=== PATIENT | female | born 1935 | race Asian ===

== ENCOUNTER 2017-12-31 06:56 | Emergency (ER) | payer MEDICARE, MEDICAID ==
[~2017-12-31] VITALS: Ht 157.5 cm; Wt 60.0 kg
[~2017-12-31 06:56] MED LIST: ACET-3068 PO; ALBU8.5H4 IH; ASPI81TA52 PO; DOCU-28 PO; ESOM40CA30 PO; GABA300C PO; GLIM1TAB46 PO; LOSA1TAB36 PO; METF500T PO; MORP30TA PO; OMEP40CA37 PO; PYRI100T2 PO; PYRI50TA10 PO; SENN-161 PO
[2017-12-31] MEDS ORDERED: morphine 8mg/ml inj. syringe IV PRN (07:20)
[2017-12-31] MEDS ORDERED: normal saline 1000ML IV soln IVB ONE (07:20)
[2017-12-31] MEDS ORDERED: ondansetron/PF 4mg/2ml inj IV ONE (07:20)
[2017-12-31] MEDS ORDERED: morphine 2 MG/ML inj. syringe ONE (07:37)
[2017-12-31 08:23] LABS: BASOPHILS % (AUTO) 0.2 % (0-1); EOSINOPHILS # (AUTO) 0.1 X10'3 (0-0.9); HEMATOCRIT 37.7 % (35.0-45.0); HEMOGLOBIN 12.8 g/dl (12.0-16.0); LYMPHOCYTES # (AUTO) 1.3 X10'3 (1.1-4.8); LYMPHOCYTES % (AUTO) 9.1 % (21-51); MEAN CORPUSCULAR HEMOGLOBIN 28.6 PG (27.0-31.0); MEAN CORPUSCULAR HGB CONC 33.9 % (33.0-36.5); MEAN CORPUSCULAR VOLUME 84.3 FL (78-98); MEAN PLATELET VOLUME 7.2 FL (7.4-10.4); MONOCYTES # (AUTO) 1.1 X10'3 (0-0.9); MONOCYTES % (AUTO) 8.3 % (2-12); NEUTROPHILS # (AUTO) 11.2 X10'3 (1.8-7.7); NEUTROPHILS % (AUTO) 81.4 % (42-75); PLATELET COUNT 274 X10'3 (140-440); RED BLOOD COUNT 4.46 X10'6 (4.20-5.60); RED CELL DISTRIBUTION WIDTH 12.9 % (11.5-14.5); WHITE BLOOD COUNT 13.8 X10'3 (4.5-11.0)
[2017-12-31 08:30] LABS: CLARITY,URINE Clear (Clear); GLUCOSE, URINE >=1000 mg/dl (Neg); KETONES,URINE Negative (Neg); LEUKOCYTE ESTERASE ,URINE Negative (Neg); NITRITES, URINE Negative (Neg); OCCULT BLOOD,URINE Negative (Neg); PH,URINE 6.5 (4.8-8.0); PROTEIN,URINE Negative (Neg); UROBILINOGEN,URINE 0.2 E.U/dL (0.2-1.0)
[2017-12-31 08:33] LABS: COLOR,URINE STRAW (Yellow); UA COLLECTION TYPE STRAIGHT CATH
[2017-12-31 08:37] LABS: ALANINE AMINOTRANSFERASE 36 U/L (12-78); ALBUMIN 3.1 G/DL (3.4-5.0); ALBUMIN/GLOBULIN RATIO 0.8 (1.1-1.5); ALKALINE PHOSPHATASE 89 IU/L (46-116); ANION GAP 13 (8-16); ASPARTATE AMINO TRANSFERASE 31 U/L (10-37); BILIRUBIN,TOTAL 0.5 MG/DL (0.1-1.0); BLOOD UREA NITROGEN 13 MG/DL (7-18); BUN/CREATININE RATIO 12.4 (6.6-38.0); CALCIUM 8.6 MG/DL (8.5-10.1); CHLORIDE 96 MMOL/L (99-107); CREATININE 1.05 MG/DL (0.40-0.90); GLUCOSE 235 MG/DL (70-104); LIPASE 142 U/L (73-393); POTASSIUM 3.2 MMOL/L (3.5-5.1); SODIUM 133 MMOL/L (135-145); TOTAL CARBON DIOXIDE 24.2 MMOL/L (24-32); TOTAL PROTEIN 6.9 G/DL (6.4-8.2); eGFR 50 ML/MIN
[2017-12-31 08:40] LABS: BACTERIA,URINE FEW /HPF (Neg); RBC,URINE 0-2 /HPF (0-2); WBC,URINE 0-4 /HPF (0-4)
[2017-12-31 08:41] LABS: SQUAMOUS EPITHELIAL CELL,UR FEW /LPF (FEW); TRANSITIONAL EPI CELLS,URINE FEW /HPF
[2017-12-31] MEDS ORDERED: potassium Cl 20 mEq SR tablet PO ONE (08:50)
[2017-12-31] MEDS ORDERED: mag hydrox/Alum hydrox/simeth 30ml oral suspension PO ONE (09:10)
[2017-12-31] MEDS ORDERED: famotidine/PF 10 mg/ml inj IV ONE (09:10)
[2017-12-31] MEDS ORDERED: FAMO-128 PO (10:24)
[2017-12-31] MEDS ORDERED: SUCR1ORA2 PO (10:24)
[2017-12-31 10:41] VITALS: BP 134/89
== END 2017-12-31 10:40 | disposition home or self-care (01) ==
LOC: ER 06:57
DX: R10.13 Epigastric pain (principal); I10 Essential (primary) hypertension; J45.909 Unspecified asthma, uncomplicated; K21.9 Gastro-esophageal reflux disease without esophagitis; E11.9 Type 2 diabetes mellitus without complications; G89.29 Other chronic pain; Z88.0 Allergy status to penicillin; Z88.2 Allergy status to sulfonamides; Z88.5 Allergy status to narcotic agent; Z79.84 Long term (current) use of oral hypoglycemic drugs
CPT/HCPCS: 36415; 74176; 76700; 80053; 81001; 83690; 85025; 93005; 96361; 96374; 96375; 99285; J2270; J2405; J3490; J7030

== ENCOUNTER 2018-07-13 01:59 | Emergency (ER) | payer MEDICARE, MEDICAID ==
[~2018-07-13] VITALS: Ht 152.4 cm; Wt 60.2 kg
[~2018-07-13 01:59] MED LIST changes: +ALBU8.5H8 IH; +FAMO-128 PO; +SUCR1ORA2 PO
[2018-07-13 02:38] LABS: BASOPHILS % (AUTO) 0.4 % (0-1); EOSINOPHILS # (AUTO) 0.2 X10'3 (0-0.9); EOSINOPHILS % (AUTO) 1.8 % (0-6); HEMATOCRIT 36.1 % (35.0-45.0); HEMOGLOBIN 12.3 g/dl (12.0-16.0); LYMPHOCYTES % (AUTO) 34.2 % (21-51); MEAN CORPUSCULAR VOLUME 85.4 FL (78-98); MEAN PLATELET VOLUME 7.2 FL (7.4-10.4); MONOCYTES # (AUTO) 0.9 X10'3 (0-0.9); MONOCYTES % (AUTO) 10.1 % (2-12); NEUTROPHILS # (AUTO) 4.5 X10'3 (1.8-7.7); NEUTROPHILS % (AUTO) 53.5 % (42-75); PLATELET COUNT 332 X10'3 (140-440); RED BLOOD COUNT 4.22 X10'6 (4.20-5.60); RED CELL DISTRIBUTION WIDTH 12.1 % (11.5-14.5); WHITE BLOOD COUNT 8.6 X10'3 (4.5-11.0)
[2018-07-13] MEDS ORDERED: MORP30TA PO (02:47)
[2018-07-13] MEDS ORDERED: ACET-1017 PO (02:47)
[2018-07-13] MEDS ORDERED: PRAV10TA39 PO (02:47)
[2018-07-13] MEDS ORDERED: DIPH25CA46 PO (02:47)
[2018-07-13 02:49] LABS: INR 0.9 INR; PARTIAL THROMBOPLASTIN TIME 26 SECONDS (22-32); PROTHROMBIN TIME 9.7 SECONDS (9.0-12.0)
[2018-07-13 02:53] LABS: ALANINE AMINOTRANSFERASE 47 U/L (12-78); ALBUMIN 3.4 G/DL (3.4-5.0); ALBUMIN/GLOBULIN RATIO 0.8 (1.1-1.5); ALKALINE PHOSPHATASE 84 IU/L (46-116); ANION GAP 10 (8-16); ASPARTATE AMINO TRANSFERASE 27 U/L (10-37); BILIRUBIN,TOTAL 0.4 MG/DL (0.1-1.0); BLOOD UREA NITROGEN 12 MG/DL (7-18); BUN/CREATININE RATIO 12.1 (6.6-38.0); CALCIUM 9.3 MG/DL (8.5-10.1); CHLORIDE 98 MMOL/L (99-107); CREATININE 0.99 MG/DL (0.40-0.90); GLUCOSE 214 MG/DL (70-104); POTASSIUM 3.4 MMOL/L (3.5-5.1); SODIUM 134 MMOL/L (135-145); TOTAL CARBON DIOXIDE 25.9 MMOL/L (24-32); TOTAL PROTEIN 7.6 G/DL (6.4-8.2); eGFR 53 ML/MIN
[2018-07-13] MEDS ORDERED: FAMO-128 PO (03:35)
[2018-07-13] MEDS ORDERED: HYDROcodone/acetaminophen 5mg/325mg tablet PO ONE (03:35)
[2018-07-13] MEDS ORDERED: HYDR-569 PO (03:35)
[2018-07-13] MEDS ORDERED: loperamide 2mg capsule PO ONE (03:35)
[2018-07-13] MEDS ORDERED: LOPE-144 PO (03:35)
[2018-07-13] MEDS ORDERED: famotidine/PF 10 mg/ml inj IV ONE (03:35)
[2018-07-13 04:05] VITALS: BP 198/89
== END 2018-07-13 04:06 | disposition home or self-care (01) ==
LOC: ER 01:59
DX: K29.70 Gastritis, unspecified, without bleeding (principal); R19.7 Diarrhea, unspecified; G47.62 Sleep related leg cramps; R10.13 Epigastric pain; I10 Essential (primary) hypertension; J45.909 Unspecified asthma, uncomplicated; K21.9 Gastro-esophageal reflux disease without esophagitis; E11.9 Type 2 diabetes mellitus without complications; G89.29 Other chronic pain; Z98.890 Other specified postprocedural states; Z88.0 Allergy status to penicillin; Z88.2 Allergy status to sulfonamides; Z88.5 Allergy status to narcotic agent; Z79.899 Other long term (current) drug therapy; Z79.82 Long term (current) use of aspirin
CPT/HCPCS: 36415; 71045; 80053; 83605; 83880; 84484; 85025; 85610; 85730; 87040; 93005; 96374; 99285; J3490

== ENCOUNTER 2021-09-07 07:14 | Emergency (ER) | payer MEDICARE, MEDICAID ==
[~2021-09-07] VITALS: Ht 154.9 cm; Wt 56.5 kg
[~2021-09-07 07:14] MED LIST changes: -ACET-3068 PO; -ALBU8.5H4 IH; -ALBU8.5H8 IH; +ATOR10TA10 PO; +BUPR1FIL3 SL; -DOCU-28 PO; -ESOM40CA30 PO; -FAMO-128 PO; -GLIM1TAB46 PO; -LOSA1TAB36 PO; +MELO-102 PO; -METF500T PO; +METO1TAB25 PO; +MIRT-67 PO; -MORP30TA PO; +OMEP-50 PO; -OMEP40CA37 PO; +POTA10TA37 PO; +PRAV10TA39 PO; -PYRI100T2 PO; -PYRI50TA10 PO; -SENN-161 PO; -SUCR1ORA2 PO
[2021-09-07 07:17] VITALS: BP 130/79
== END 2021-09-07 16:55 | disposition left against medical advice (07) ==
LOC: ER 07:15
DX: R21 Rash and other nonspecific skin eruption (principal); Z53.21 Procedure and treatment not carried out due to patient leaving prior to being seen by health care provider

== ENCOUNTER 2021-09-19 10:36 | Inpatient (IN) | payer MEDICARE, MEDICAID ==
[~2021-09-19] VITALS: Ht 157.5 cm; Wt 43.2 kg
[2021-09-19] MEDS ORDERED: CefTRIAXone 2gm/D5W 50ml BAG 50 ML IV ONE (10:40)
[2021-09-19] MEDS ORDERED: normal saline 1000ML IV soln IV ONE (10:40)
[2021-09-19] MEDS ORDERED: phenazopyridine 100mg tablet PO ONE (11:25)
[2021-09-19 11:31] LABS: BASOPHILS % (AUTO) 0.1 % (0-1); EOSINOPHILS # (AUTO) 0.1 X10'3 (0-0.9); EOSINOPHILS % (AUTO) 0.8 % (0-6); HEMATOCRIT 42.4 % (35.0-45.0); HEMOGLOBIN 13.8 g/dl (12.0-16.0); LYMPHOCYTES # (AUTO) 1.3 X10'3 (1.1-4.8); LYMPHOCYTES % (AUTO) 7.3 % (21-51); MEAN CORPUSCULAR HEMOGLOBIN 28.5 PG (27.0-31.0); MEAN CORPUSCULAR HGB CONC 32.6 g/dL (33.0-36.5); MEAN CORPUSCULAR VOLUME 87.7 FL (78-98); MEAN PLATELET VOLUME 7.7 FL (7.4-10.4); MONOCYTES # (AUTO) 1.2 X10'3 (0-0.9); MONOCYTES % (AUTO) 6.6 % (2-12); NEUTROPHILS # (AUTO) 15.1 X10'3 (1.8-7.7); NEUTROPHILS % (AUTO) 85.2 % (42-75); PLATELET COUNT 340 X10'3 (140-440); RED BLOOD COUNT 4.84 X10'6 (4.20-5.60); RED CELL DISTRIBUTION WIDTH 13.3 % (11.5-14.5); WHITE BLOOD COUNT 17.7 X10'3 (4.5-11.0)
[2021-09-19 11:42] LABS: ALANINE AMINOTRANSFERASE 35 U/L (12-78); ALBUMIN 3.6 G/DL (3.4-5.0); ALBUMIN/GLOBULIN RATIO 0.8 (1.1-1.5); ALKALINE PHOSPHATASE 95 IU/L (46-116); ANION GAP 18 (8-16); ASPARTATE AMINO TRANSFERASE 22 U/L (10-37); BILIRUBIN,TOTAL 0.5 MG/DL (0.1-1.0); BLOOD UREA NITROGEN 32 MG/DL (7-18); BUN/CREATININE RATIO 22.5 (6.6-38.0); CALCIUM 9.6 MG/DL (8.5-10.1); CHLORIDE 99 MMOL/L (99-107); CREATININE 1.42 MG/DL (0.40-0.90); GLUCOSE 403 MG/DL (70-104); MAGNESIUM 2.1 MG/DL (1.5-2.4); POTASSIUM 4.1 MMOL/L (3.5-5.1); SODIUM 140 MMOL/L (135-145); TOTAL CARBON DIOXIDE 22.6 MMOL/L (24-32); eGFR 35 ML/MIN
[2021-09-19 11:46] LABS: CLARITY,URINE CLOUDY (Clear); COLOR,URINE STRAW (Yellow); UA COLLECTION TYPE STRAIGHT CATH
[2021-09-19 11:47] LABS: GLUCOSE, URINE >=1000 mg/dl (Neg); KETONES,URINE NEGATIVE (Neg); LEUKOCYTE ESTERASE ,URINE TRACE (Neg); NITRITES, URINE POSITIVE (Neg); OCCULT BLOOD,URINE NEGATIVE (Neg); PROTEIN,URINE NEGATIVE (Neg); UROBILINOGEN,URINE 0.2 E.U/dL (0.2-1.0)
[2021-09-19 11:53] LABS: BACTERIA,URINE 4+ /HPF (Neg); MUCUS STRANDS NONE SEEN /LPF (Neg); RBC,URINE 0-2 /HPF (0-2); SQUAMOUS EPITHELIAL CELL,UR NONE SEEN /LPF (FEW); WBC CLUMPS,URINE FEW /HPF (NEGATIVE); WBC,URINE 50-100 /HPF (0-4)
[2021-09-19 11:56] LABS: PLATELET ESTIMATE NORMAL; TOTAL CELLS COUNTED 100
[2021-09-19] MEDS ORDERED: magnesium 4gm in 100ml NS 100 ML IV PRN (15:25)
[2021-09-19] MEDS ORDERED: mag hydrox/Alum hydrox/simeth 30ml oral suspension PO PRN (15:25)
[2021-09-19] MEDS ORDERED: acetaminophen 325mg tablet PO PRN (15:25)
[2021-09-19] MEDS ORDERED: ondansetron/PF 4mg/2ml inj IV PRN (15:25)
[2021-09-19] MEDS ORDERED: potassium Cl 40MEQ/1/2NS 520ml 520 ML IV PRN ×2 (15:25)
[2021-09-19] MEDS ORDERED: magnesium hydroxide 30ml (MOM) UD suspension PO PRN (15:25)
[2021-09-19] MEDS ORDERED: potassium Cl 20 mEq SR tablet PO PRN ×2 (15:25)
[2021-09-19] MEDS ORDERED: magnesium Cl slow-release 64mg tablet PO PRN (15:25)
[2021-09-19] MEDS ORDERED: bisacodyl 10mg suppository rectal RC PRN (15:25)
[2021-09-19] MEDS ORDERED: magnesium 2GM in 50ml NS 50 ML IV PRN (15:25)
[2021-09-19] MEDS ORDERED: OXYB5TAB16 PO (15:49)
[2021-09-19] MEDS ORDERED: [UNRECOGNIZED DRUG - CODE] PO (15:49)
[2021-09-19] MEDS ORDERED: LOSA1TAB36 PO (15:49)
[2021-09-19] MEDS ORDERED: [UNRECOGNIZED DRUG - OTHER] (15:49)
[2021-09-19] MEDS ORDERED: METF-436 PO (15:49)
[2021-09-19] MEDS ORDERED: EMPA10TA PO (15:49)
[2021-09-19] MEDS ORDERED: MORP30TA PO (15:49)
[2021-09-19] MEDS ORDERED: ACETAMINOPHEN 500 MG PO SCH (16:05)
[2021-09-19] MEDS ORDERED: dextrose 50%-water 50ml dispensing syringe IV PRN ×2 (16:05)
[2021-09-19] MEDS ORDERED: dextrose ORAL solution 15 GM/59 ML bottle PO PRN ×2 (16:05)
[2021-09-19] MEDS ORDERED: glucagon, human recombinant 1mg kit SUBCUT PRN (16:05)
[2021-09-19] MEDS ORDERED: insulin Lispro (HumaLOG) vial - multi-dose SQ SCH (16:05)
[2021-09-19] MEDS ORDERED: MESSAGE TO PHARMACY PO ONE (16:05)
[2021-09-19] MEDS: normal saline 1000ml 1,000 ML IV SCH (18:20)
[2021-09-19] MEDS: K and/or MAG REPLACEMENT MC SCH (20:00)
[2021-09-19] MEDS: oxybutynin 5mg tablet PO SCH (20:29)
[2021-09-19] MEDS: acetaminophen 325mg tablet PO PRN (20:29)
[2021-09-19] MEDS: docusate sod 100mg capsule PO SCH (20:29)
[2021-09-19] MEDS: phenazopyridine 100mg tablet PO SCH (20:30)
[2021-09-19] MEDS: insulin glargine (Lantus) pen - multi-dose SQ SCH (21:00)
[2021-09-19] MEDS ORDERED: temazepam 15mg capsule PO PRN (21:00)
[2021-09-20] MEDS: acetaminophen 325mg tablet PO PRN (02:51)
[2021-09-20] MEDS: normal saline 1000ml 1,000 ML IV SCH ×2 (03:58→06:49)
--- NOTE | 2021-09-20 04:12 | NUR ---
PT HELPED TO BEDSIDE COMODE AND CLEANED UP AND GIVEN CLEAN DIAPER AND NEW WARM BLANKETS WELL CALL LIGHT NEXT TO BED Addendum: 09/20/21 at 0413 by LESLIE THIS WAS DONE AT [id number]
[2021-09-20] MEDS ORDERED: HYDROcodone/acetaminophen 5mg/325mg tablet PO ONE (05:05)
[2021-09-20] MEDS ORDERED: non-formulary drug (Losartan/Hydrochlorothiazide (Losartan-Hctz 50-12.5 Mg Tab) 1 TAB) PO SCH (08:00)
[2021-09-20] MEDS: K and/or MAG REPLACEMENT MC SCH ×2 (08:00→13:06)
[2021-09-20 08:23] LABS: BASOPHILS % (AUTO) 0.2 % (0-1); EOSINOPHILS # (AUTO) 0.1 X10'3 (0-0.9); EOSINOPHILS % (AUTO) 0.7 % (0-6); HEMATOCRIT 38.2 % (35.0-45.0); HEMOGLOBIN 12.4 g/dl (12.0-16.0); LYMPHOCYTES # (AUTO) 2.1 X10'3 (1.1-4.8); LYMPHOCYTES % (AUTO) 20.2 % (21-51); MEAN CORPUSCULAR HEMOGLOBIN 28.8 PG (27.0-31.0); MEAN CORPUSCULAR HGB CONC 32.6 g/dL (33.0-36.5); MEAN CORPUSCULAR VOLUME 88.4 FL (78-98); MEAN PLATELET VOLUME 7.8 FL (7.4-10.4); MONOCYTES # (AUTO) 0.5 X10'3 (0-0.9); MONOCYTES % (AUTO) 5.1 % (2-12); NEUTROPHILS # (AUTO) 7.8 X10'3 (1.8-7.7); NEUTROPHILS % (AUTO) 73.8 % (42-75); PLATELET COUNT 292 X10'3 (140-440); RED BLOOD COUNT 4.31 X10'6 (4.20-5.60); RED CELL DISTRIBUTION WIDTH 13.4 % (11.5-14.5); WHITE BLOOD COUNT 10.6 X10'3 (4.5-11.0)
[2021-09-20 08:49] LABS: ALANINE AMINOTRANSFERASE 24 U/L (12-78); ALBUMIN 3.1 G/DL (3.4-5.0); ALBUMIN/GLOBULIN RATIO 0.8 (1.1-1.5); ALKALINE PHOSPHATASE 76 IU/L (46-116); ANION GAP 13 (8-16); ASPARTATE AMINO TRANSFERASE 17 U/L (10-37); BILIRUBIN,TOTAL 0.6 MG/DL (0.1-1.0); BLOOD UREA NITROGEN 17 MG/DL (7-18); BUN/CREATININE RATIO 20.7 (6.6-38.0); CALCIUM 8.7 MG/DL (8.5-10.1); CHLORIDE 106 MMOL/L (99-107); CREATININE 0.82 MG/DL (0.40-0.90); GLUCOSE 198 MG/DL (70-104); MAGNESIUM 2.1 MG/DL (1.5-2.4); POTASSIUM 3.6 MMOL/L (3.5-5.1); SODIUM 142 MMOL/L (135-145); TOTAL CARBON DIOXIDE 22.9 MMOL/L (24-32); TOTAL PROTEIN 7.1 G/DL (6.4-8.2); eGFR 66 ML/MIN
[2021-09-20] MEDS: CefTRIAXone/D5W-Rocephin 1gm 50 ML IV SCH (09:18)
[2021-09-20] MEDS: docusate sod 100mg capsule PO SCH ×2 (09:19→19:19)
[2021-09-20] MEDS: oxybutynin 5mg tablet PO SCH ×2 (09:19→20:23)
[2021-09-20] MEDS: aspirin 81mg, enteric-coated 1 TAB TABLET.DR PO SCH (09:20)
[2021-09-20] MEDS: phenazopyridine 100mg tablet PO SCH ×3 (09:20→19:19)
[2021-09-20] MEDS: HYDROchlorothiazide 12.5mg capsule PO SCH (09:20)
[2021-09-20] MEDS: pantoprazole 40mg Tablet.DR PO SCH (09:20)
[2021-09-20] MEDS: losartan 50mg tablet PO SCH (09:20)
[2021-09-20] MEDS: enoxaparin 40mg/0.4ml syringe SUBCUT SCH (09:21)
[2021-09-20] MEDS: morphine IR (immed. release) 30mg tablet PO PRN ×2 (10:20→23:32)
--- NOTE | 2021-09-20 15:35 | NUR ---
pt to bedside commode and brief changes several times due to incontinence
[2021-09-20] MEDS: lactobacillus rhamnosus 10,000 MMU CELLS/CAPSULE PO SCH (20:23)
[2021-09-20] MEDS: insulin glargine (Lantus) pen - multi-dose SQ SCH (22:21)
[2021-09-21 01:31] LABS: BASOPHILS % (AUTO) 0.3 % (0-1); EOSINOPHILS # (AUTO) 0.1 X10'3 (0-0.9); EOSINOPHILS % (AUTO) 1.2 % (0-6); HEMATOCRIT 36.5 % (35.0-45.0); HEMOGLOBIN 12.1 g/dl (12.0-16.0); LYMPHOCYTES # (AUTO) 2.1 X10'3 (1.1-4.8); LYMPHOCYTES % (AUTO) 25.7 % (21-51); MEAN CORPUSCULAR HGB CONC 33.3 g/dL (33.0-36.5); MEAN CORPUSCULAR VOLUME 87.1 FL (78-98); MEAN PLATELET VOLUME 7.4 FL (7.4-10.4); MONOCYTES # (AUTO) 0.5 X10'3 (0-0.9); MONOCYTES % (AUTO) 6.6 % (2-12); NEUTROPHILS # (AUTO) 5.5 X10'3 (1.8-7.7); NEUTROPHILS % (AUTO) 66.2 % (42-75); PLATELET COUNT 290 X10'3 (140-440); RED BLOOD COUNT 4.18 X10'6 (4.20-5.60); RED CELL DISTRIBUTION WIDTH 12.9 % (11.5-14.5); WHITE BLOOD COUNT 8.2 X10'3 (4.5-11.0)
[2021-09-21 01:47] LABS: ALANINE AMINOTRANSFERASE 26 U/L (12-78); ALBUMIN/GLOBULIN RATIO 0.8 (1.1-1.5); ALKALINE PHOSPHATASE 72 IU/L (46-116); ANION GAP 12 (8-16); ASPARTATE AMINO TRANSFERASE 18 U/L (10-37); BILIRUBIN,TOTAL 0.6 MG/DL (0.1-1.0); BLOOD UREA NITROGEN 14 MG/DL (7-18); BUN/CREATININE RATIO 15.7 (6.6-38.0); CALCIUM 8.8 MG/DL (8.5-10.1); CHLORIDE 105 MMOL/L (99-107); CREATININE 0.89 MG/DL (0.40-0.90); GLUCOSE 178 MG/DL (70-104); MAGNESIUM 2.1 MG/DL (1.5-2.4); POTASSIUM 3.7 MMOL/L (3.5-5.1); SODIUM 141 MMOL/L (135-145); TOTAL CARBON DIOXIDE 24.3 MMOL/L (24-32); eGFR 60 ML/MIN
--- NOTE | 2021-09-21 04:48 | NUR ---
applied barrier cream and minor skin irritatiton noted. redness present but no swelling, bleeding or excoration. patient repositioned and purwick reapplied with new diaper
[2021-09-21] MEDS: normal saline 1000ml 1,000 ML IV SCH (07:25)
[2021-09-21] MEDS: aspirin 81mg, enteric-coated 1 TAB TABLET.DR PO SCH (07:55)
[2021-09-21] MEDS: losartan 50mg tablet PO SCH (07:55)
[2021-09-21] MEDS: lactobacillus rhamnosus 10,000 MMU CELLS/CAPSULE PO SCH (07:55)
[2021-09-21] MEDS: CefTRIAXone/D5W-Rocephin 1gm 50 ML IV SCH (07:55)
[2021-09-21] MEDS: pantoprazole 40mg Tablet.DR PO SCH (07:55)
[2021-09-21] MEDS: docusate sod 100mg capsule PO SCH (07:55)
[2021-09-21] MEDS: phenazopyridine 100mg tablet PO SCH (07:55)
[2021-09-21] MEDS: HYDROchlorothiazide 12.5mg capsule PO SCH (07:55)
[2021-09-21] MEDS: oxybutynin 5mg tablet PO SCH (07:55)
[2021-09-21] MEDS: enoxaparin 40mg/0.4ml syringe SUBCUT SCH (07:56)
[2021-09-21] MEDS: K and/or MAG REPLACEMENT MC SCH (08:00)
[2021-09-21 08:25] VITALS: BP 109/51
[2021-09-21] MEDS ORDERED: LEVO500T90 PO (11:09)
[2021-09-21] MEDS ORDERED: NYSTATIN CREAM - 30GM TUBE TP SCH (11:25)
== END 2021-09-21 11:40 | disposition home or self-care (01) | DRG 871 ==
LOC: ER 10:36 → ED HOLD 15:30
PROVIDERS: ADMIT Family Medicine; ATTEND Family Medicine
DX: A41.9 Sepsis, unspecified organism (principal); N17.0 Acute kidney failure with tubular necrosis; N13.6 Pyonephrosis; E11.22 Type 2 diabetes mellitus with diabetic chronic kidney disease; E11.40 Type 2 diabetes mellitus with diabetic neuropathy, unspecified; G89.4 Chronic pain syndrome; B96.4 Proteus (mirabilis) (morganii) as the cause of diseases classified elsewhere; N18.9 Chronic kidney disease, unspecified; F17.200 Nicotine dependence, unspecified, uncomplicated; I12.9 Hypertensive chronic kidney disease with stage 1 through stage 4 chronic kidney disease, or unspecified chronic kidney disease; J45.909 Unspecified asthma, uncomplicated; K29.70 Gastritis, unspecified, without bleeding; N32.81 Overactive bladder; K21.9 Gastro-esophageal reflux disease without esophagitis; Z88.0 Allergy status to penicillin; Z88.2 Allergy status to sulfonamides; Z88.8 Allergy status to other drugs, medicaments and biological substances
CPT/HCPCS: 36415; 71045; 74176; 80053; 81001; 82948; 83036; 83605; 83735; 84145; 85007; 85025; 87040; 87077; 87088; 87186; 93005; 96365; 99285; G0378; J0696; J1650; J1815; J2405; J7030